=== PATIENT | female | born 1930 | race Caucasian/White ===

== ENCOUNTER → 2016-11-12 | Outpatient (CLI) | payer OTHER | LOC: FIMAGING 09:22 | PROVIDERS: ATTEND Obstetrics & Gynecology Gynecology | DX: Z12.39 Encounter for other screening for malignant neoplasm of breast (principal); N63 Unspecified lump in breast | CPT/HCPCS: 76641; G0204 ==

== ENCOUNTER 2017-11-26 12:30 | Observation (INO) | payer OTHER ==
--- NOTE | 2017-12-31 10:54 | PDHPUP ---
History & Physical Update H&P update statement: This history and physical update is based on an assessment of the patient which was completed after admission or registration (within 24 hours), but prior to the surgery/procedure. H&P update: H&P reviewed & patient examined, no change in patient's condition since H&P completed
[2017-12-31] MEDS ORDERED: LR 1,000 ML IV ONE (11:00)
[2017-12-31] MEDS ORDERED: fentaNYL 250 MCG/5 ML INJ ONE (11:08)
[2017-12-31] MEDS ORDERED: PROPOFOL/EMULSION 500 MG/50 ML BOTTLE IV ONE (11:09)
[2017-12-31] MEDS ORDERED: PHENAZOPYRIDINE HCL 200 MG TAB PO ONE (11:20)
[2017-12-31] MEDS ORDERED: ceFAZolin 2 GM/DEXTROSE 100 ML IV ONE (11:20)
[2017-12-31] MEDS ORDERED: ACETAMINOPHEN 500 MG TAB PO ONE (11:20)
[2017-12-31] MEDS ORDERED: CEFAZOLIN 2 GM/DEXTROSE/100 ML BAG IV ONE (11:22)
[2017-12-31] MEDS ORDERED: PHENAZOPYRIDINE HCL 200 MG TAB ONE (11:25)
[2017-12-31] MEDS ORDERED: ACETAMINOPHEN 325 MG TAB ONE (11:25)
--- NOTE | 2017-12-31 11:30 | PDANEPAE ---
ANE History of Present Illness 87 year old female for sacrocolpopexy. Pacemaker, Afib. ANE Past Medical History - Cardiovascular History Hx Hypertension: No Hx Arrhythmias: Yes Hx Chest Pain: No Hx Coronary Artery / Peripheral Vascular Disease: No Hx CHF / Valvular Disease: No Hx Palpitations: No Cardiovascular History Comment: ECHO PENDING 12/16 - Pulmonary History Hx COPD: No Hx Asthma/Reactive Airway Disease: No Hx Recent Upper Respiratory Infection: No Hx Oxygen in Use at Home: No Hx Sleep Apnea: No Sleep Apnea Screening Result - Last Documented: Negative - Neurologic History Hx Cerebrovascular Accident: No Hx Seizures: No Hx Dementia: No - Endocrine History Hx Diabetes: No - Renal History Hx Renal Disorders: No - Liver History Hx Hepatic Disorders: No - Neurological & Psychiatric Hx Hx Neurological and Psychiatric Disorders: No - Cancer History Hx Cancer: Yes Cancer History Comment: BASAL CELL - Congenital Disorder History Hx Congenital Disorders: No - GI History Hx Gastrointestinal Disorders: No - Other Health History Other Health History: none - Chronic Pain History Chronic Pain: No - Surgical History Prior Surgeries: none ANE Review of Systems Review of systems is: negative Review of Systems: - Exercise capacity METS (RN): 4 METS - Pacemaker Pacemaker Type: Permanent Pacer/Defib Pacemaker Jig Grinder Set Up Operator: Medtronic Pacemaker Model: adapta ADDOR1 Pacemaker Mode: VVIR Date Pacemaker Last Checked: 06/13/17 ANE Patient History - Allergies Allergies/Adverse Reactions: Sulfa (Sulfonamide Antibiotics) Allergy (Verified 12/31/17 11:15) Vomiting - Home Medications Home Medications: Dabigatran Etexilate Mesyl [Pradaxa 150 MG (*)] 150 mg PO BID 11/24/17 [Last Taken 12/29/17] Estradiol [Estrace Vaginal (*)] 1 sander VG Q3D 11/24/17 [Last Taken Unknown] Estradiol [Vivelle-Dot 0.0375MG (*)] 0.0375 mg TD MoTh@0800 11/24/17 [Last Taken 12/30/17] Herbals/Supplements -Info Only 1 ea PO DAILY 11/24/17 [Last Taken 12/24/17] Multivitamins [Multivitamin (*)] 1 each PO DAILY 11/24/17 [Last Taken 12/24/17] - NPO status NPO Since - Liquids (Date): 12/31/17 NPO Since - Liquids (Time): 07:00 NPO Since - Solids (Date): 12/30/17 NPO Since - Solids (Time): 02:00 - Smoking Hx Smoking Status: Never smoked - Family Anes Hx Family Hx Anesthesia Complications: none ANE Labs/Vital Signs - Vital Signs Blood Pressure: 183/104 Heart Rate: 79 Respiratory Rate: 16 O2 Sat (%): 92 Height: 160.02 cm Weight: 61.235 kg ANE Physical Exam - Airway Neck exam: FROM Mallampati Score: Class 2 Mouth exam: normal dental/mouth exam - Pulmonary Pulmonary: no respiratory distress - Cardiovascular Cardiovascular: regular rate and rhythym - ASA Status ASA Status: III ANE Anesthesia Plan Anesthesia Plan: general endotracheal anesthesia
[2017-12-31] MEDS ORDERED: BUPIVACAINE/EPI 0.5% 30 ML SDV ONE (11:42)
[2017-12-31] MEDS ORDERED: ROCURONIUM 50 MG/5 ML VIAL ONE (12:00)
[2017-12-31] MEDS ORDERED: LIDOCAINE 2% 5 ML SDV ONE (12:00)
[2017-12-31] MEDS ORDERED: ONDANSETRON 4 MG/2 ML VIAL ONE (12:00)
[2017-12-31] MEDS ORDERED: DEXAMETHASONE 4 MG/ML VIAL ONE (12:00)
[2017-12-31] MEDS ORDERED: ALBUTEROL 3 ML DEYVIAL IH PRN (12:16)
[2017-12-31] MEDS ORDERED: NALOXONE HCL 0.4 MG/ML INJ IVP PRN (12:16)
[2017-12-31] MEDS ORDERED: HYDROCODONE/APAP 5/325 TAB PO PRN ×2 (12:16→13:58)
[2017-12-31] MEDS ORDERED: ONDANSETRON 4 MG/2 ML VIAL IVP PRN ×2 (12:16→13:58)
[2017-12-31] MEDS ORDERED: PROPOFOL 200 MG/20 ML VIAL ONE (12:51)
[2017-12-31] MEDS ORDERED: SUGAMMADEX SODIUM 200 MG/2 ML VIAL IVP ONE (13:46)
[2017-12-31] MEDS ORDERED: PROMETHAZINE HCL 25 MG/ML INJ IVP PRN (13:58)
[2017-12-31] MEDS ORDERED: ONDANSETRON DISINTEGRATING 4 MG TAB PO PRN (13:58)
--- NOTE | 2017-12-31 13:58 | POSTOPPROG ---
Post Op Note Date of Operation: 12/31/17 Surgeon: David Vela Siding Installer: Ariella Gonzalez Anesthesia: GET(General Endotracheal) Pre-op Diagnosis: Complete vaginal prolapse Post-op Diagnosis: Same Procedure: Robotic sacrocolpopexy with mesh, Perineorrhaphy, cysto Findings: No bladder or ureteral injury Inf/Abcess present in the surg proc area at time of surgery?: No EBL: Minimal Complications: None
[2017-12-31] MEDS ORDERED: LR 1,000 ML IV SCH (14:00)
[2017-12-31] MEDS: fentaNYL 100 MCG/2 ML INJ IVP PRN ×3 (14:02→14:19)
[2017-12-31] MEDS ORDERED: fentaNYL 100 MCG/2 ML INJ ONE (14:05)
[2017-12-31] MEDS ORDERED: PHENYLEPHRINE HCL 100 MCG/ML SYR ONE (14:11)
--- NOTE | 2017-12-31 14:14 | POSTANESTH ---
Post Anesthetic Evaluation Cardiovascular Status: Normal, Stable Respiratory Status: Normal, Stable Level of Consciousness/Mental Status: Mildly Sleepy, Arousable, Moderately Sleepy Pain Control: Adequate, Prn Tx Ordered Nausea/Vomiting Control: Adequate, Prn Tx Ordered Complications Possibly Related to Anesthesia: None Noted
[2017-12-31] MEDS ORDERED: HYDROmorphONE/DILAUDID 1 MG/ML INJ ONE (14:21)
[2017-12-31] MEDS: HYDROmorphONE/DILAUDID 1 MG/ML INJ IVP PRN ×3 (14:30→15:58)
--- NOTE | 2017-12-31 16:04 | GOP ---
[f rep st] OPERATIVE REPORT DATE OF OPERATION: 12/31/2017 SURGEON: David Vela MD SALES HOST: Ariella Gonzalez CFA. ANESTHESIA: General. PREOPERATIVE DIAGNOSIS: Complete vaginal prolapse. POSTOPERATIVE DIAGNOSIS: Complete vaginal prolapse. PROCEDURE PERFORMED: 1. Robotic-assisted laparoscopic sacrocolpopexy with mesh. 2. Repair of cystocele and rectocele. 3. Perineorrhaphy. 4. Cystoscopy. FINDINGS: SPECIMENS: None. ESTIMATED BLOOD LOSS: Scant. DESCRIPTION OF PROCEDURE: The patient was taken to the operating room where she was identified. General anesthesia was administered and found to be adequate. She was placed in the lithotomy position and prepared and draped in normal sterile fashion. A Rizo catheter was placed in her bladder. The patient had a prior midline laparotomy incision. A left-sided incision was made at the level of the umbilicus, slightly above. The Veress needle with the CO2 gas flowing was advanced into the peritoneal cavity. The abdomen was then insufflated with carbon dioxide gas. The robotic 8 mm trocar was placed, followed by the laparoscope. The patient had adhesions in the right lower quadrant, but not through the umbilicus. The umbilical port was then placed followed by 2 right-sided ports and 1 additional left-sided port. The patient was then placed in Trendelenburg position and the Da Chaya robot docked on the left side. The instruments were then brought into the abdominal cavity under direct visualization. The adhesions were then taken down and the stent was placed in the vagina. The bladder gently dissected off the anterior vaginal wall. The rectovaginal space was then entered and the rectum dissected off the posterior vaginal wall. Measurements were then obtained and the mesh trimmed to size. The sigmoid colon was then retracted laterally. The peritoneum over the sacral promontory was incised and the fat pad gently dissected off the anterior longitudinal ligament. The peritoneal incision was then extended along the right pericolic gutter. The mesh was brought into the abdominal cavity. Three sutures of 4-0 Golf-Nathaniel were used to attach the distal posterior mesh to the distal posterior vagina. Two additional rows of Golf-Nathaniel sutures were placed posteriorly. Three rows were placed anteriorly to suture down to the distal margins and then laterally to the paravaginal tissue. The stent was then removed. The sacral arm of the mesh was placed over the promontory and the tension adjusted. I then scrubbed back into the case to examine the vagina. The tension was further adjusted to resolve the cystocele and rectocele without undue tension on the vagina. Two sutures of 2-0 Golf-Nathaniel were used to attach the sacral arm of the mesh to the anterior longitudinal ligament at the level of the upper sacral vertebral body, below the intervertebral disk space. The excess mesh was then trimmed. The peritoneum was then closed over the entire mesh with 3-0 Vicryl Rapide suture. The robot was then undocked. The fascia was closed with 0 Vicryl, skin with 4-0 Monocryl and surgical adhesive. Cystoscopy was then performed. Both ureters had vigorous jets of urine. There was no evidence of bladder nor urethral injury seen. No mesh nor suture was seen within the bladder nor urethra. No obvious pathology was seen. The transverse incision was then made along the perineal body. The posterior vaginal epithelium was undermined with the Metzenbaum scissors and incised sagittally. The epithelium was then gently dissected off the underlying rectovaginal connective tissue. The connective tissue was plicated with 0 Vicryl followed by the bulbous spongiosis and transverse perineal muscles. The excess epithelium was then trimmed and closed with a running 2-0 Vicryl suture. Premarin cream was placed followed by vaginal packing. Anesthesia was reversed and the patient taken to PACU awake, in stable condition. COMPLICATIONS: None. DISPOSITION: Patient stable to PACU. /[id number]/MODL MTDD
[2017-12-31] MEDS: SIMETHICONE 80 MG TAB CHEW PO SCH ×2 (18:21→21:07)
[2017-12-31] MEDS: DABIGATRAN ETEXILATE MESYL 150 MG CAP PO SCH (21:07)
[2017-12-31] MEDS: DOCUSATE SODIUM 100 MG CAP PO SCH (21:07)
[2018-01-01 07:44] VITALS: BP 152/78
[2018-01-01] MEDS ORDERED: ACETAMINOPHEN 325 MG TAB PO PRN (08:17)
[2018-01-01] MEDS: DOCUSATE SODIUM 100 MG CAP PO SCH (08:30)
[2018-01-01] MEDS: SIMETHICONE 80 MG TAB CHEW PO SCH (08:30)
[2018-01-01] MEDS: DABIGATRAN ETEXILATE MESYL 150 MG CAP PO SCH (08:30)
--- NOTE | 2018-01-01 09:27 | GDS ---
[f rep st] DISCHARGE SUMMARY DISCHARGE DIAGNOSIS: Complete vaginal prolapse. PROCEDURES: 1. Robotic-assisted laparoscopic sacral colpopexy with mesh. 2. Repair of cystocele and rectocele. 3. Cystoscopy. HOSPITAL COURSE: The patient is an 87-year-old woman with a long history of vaginal prolapse. She was taken to the operating room on 12/31/2017, where she underwent the above-mentioned procedures without complications. Her postoperative course was uneventful. The morning after surgery she was ambulating, voiding, and tolerating a general diet. She was discharged home on postoperative day #1 in good condition. Medications included ibuprofen and Tylenol for pain. She will follow up in the office 2 weeks after discharge. /[id number]/MODL MTDD
== END 2018-01-01 09:58 | disposition home or self-care (01) ==
LOC: F3N 12-31 10:25 → F3E 12-31 15:09
PROVIDERS: ADMIT Obstetrics & Gynecology; ATTEND Obstetrics & Gynecology
DX: N81.3 Complete uterovaginal prolapse (principal); I48.91 Unspecified atrial fibrillation; Z95.0 Presence of cardiac pacemaker; Z85.828 Personal history of other malignant neoplasm of skin
CPT/HCPCS: 57260; 57425; C1763; G0378; J0690; J1100; J1170; J2370; J2405; J2704; J3010

== ENCOUNTER 2018-07-26 20:58 | Emergency (ER) | payer OTHER ==
[2018-07-26 21:09] VITALS: BP 192/104
[2018-07-26] MEDS ORDERED: TRANEXAMIC ACID 1,000 MG/10 ML VIAL TP ONE (22:07)
[2018-07-26] MEDS ORDERED: SILVER NITRATE APPLICATOR 1 APPL TP ONE (22:07)
--- NOTE | 2018-07-26 22:10 | EDPHY ---
H & P Stated Complaint: epistaxis on bloodthinners off and on for 2 days Time Seen by Provider: 07/26/18 21:58 HPI/ROS: HPI The patient presents with intermittent epistaxis since yesterday morning. This started spontaneously and has been from her right nostril. She was able to control it yesterday morning and again this morning. However, tonight she was in the shower and had bleeding that did not stop so she comes to the emergency department. She has no prior history of similar. She has been taking Pradaxa for years for atrial flutter. She has not had any loss of consciousness, dizziness. REVIEW OF SYSTEMS 10 systems were reviewed and negative with the exception of the elements mentioned in the history of present illness. PMHx: Atrial flutter on Pradaxa Soc Hx: Housed, here with her PHYSICAL General Appearance: Alert, no distress Eyes: Pupils equal and round no pallor or injection ENT, Mouth: Active bleeding from right naris, Mucous membranes moist Respiratory: There are no retractions, lungs are clear to auscultation Cardiovascular: Regular rate and rhythm Gastrointestinal: Abdomen is soft and non-tender, no masses, bowel sounds normal Neurological: A&O, moves all extremities Skin: Warm and dry, no rashes Musculoskeletal: Neck is supple non tender Extremities: symmetrical, full range of motion Psychiatric: Patient is oriented X 3, there is no agitation Source: Patient Exam Limitations: No limitations - Personal History Current Tetanus/Diphtheria Vaccine: Yes Current Tetanus Diphtheria and Acellular Pertussis (TDAP): Yes - Medical/Surgical History Hx Asthma: No Hx Chronic Respiratory Disease: No Hx Diabetes: No Hx Cardiac Disease: Yes Hx Renal Disease: No Hx Cirrhosis: No Hx Alcoholism: No Hx HIV/AIDS: No Hx Splenectomy or Spleen Trauma: No Other PMH: appy, hysterectomy, tonsillectomy, bone tumor, afib pacemakers - Social History Smoking Status: Never smoked Constitutional: Initial Vital Signs Temperature (C) 36.9 C 07/26/18 21:04 Heart Rate 94 07/26/18 21:04 Respiratory Rate 16 07/26/18 21:04 Blood Pressure 192/104 H 07/26/18 21:04 O2 Sat (%) 92 07/26/18 21:04 O2 Delivery Mode Room Air Allergies/Adverse Reactions: Sulfa (Sulfonamide Antibiotics) Allergy (Verified 07/26/18 21:09) Vomiting Home Medications: Medication Instructions Recorded Dabigatran Etexilate Mesyl 150 mg PO BID 11/24/17 [Pradaxa 150 MG (*)] Estradiol [Vivelle-Dot 0.0375MG 0.0375 mg TD MoTh@0800 11/24/17 (*)] Herbals/Supplements -Info Only 1 ea PO DAILY 11/24/17 Multivitamins [Multivitamin (*)] 1 each PO DAILY 11/24/17 Medical Decision Making Procedures: NOSE BLEED Procedure: Epistaxis control. Indication: nosebleed not controlled by direct pressure. Risks, benefits, alternatives discussed with patient and consent obtained. The right nares was anesthetized with lidocaine with epinephrine. The anterior epistaxis was identified. The patient was treated with T ex a soaked gauze followed by cautery with silver nitrate stick. Following the procedure the patient was re-examined and the bleeding was well controlled. The patient tolerated the procedure well. The procedure was performed by myself. Differential Diagnosis: 88-year-old female with atrial flutter on Pradaxa presents with spontaneous epistaxis from right naris for the last 2 days intermittently, now more profuse. Here, she is hypertensive, otherwise vital signs are normal. I cannot localize bleeding on initial exam. Patient was given T ex a soaked gauze with improvement in bleeding. Then, silver nitrate cauterized area of bleed. - Data Points Medications Given: Discontinued Medications Silver Nitrate/Potassium Nitrate (Silver Nitrate Applicator) 1 each TP EDNOW ONE Stop: 07/26/18 22:08 Last Admin: 07/26/18 22:50 Dose: 1 each Tranexamic Acid (Cyklokapron) 500 mg TP EDNOW ONE Stop: 07/26/18 22:08 Last Admin: 07/26/18 22:50 Dose: 500 mg Departure - Departure Disposition: Home, Routine, Self-Care Clinical Impression: Acute anterior epistaxis Condition: Good Instructions: Nosebleed (ED) Additional Instructions: I recommend you use Vaseline inside her nose during the day. You may benefit from a humidifier at night. If the bleeding starts again please use Afrin and the nasal clamps for 10 min. I would hold your Pradaxa for 2 days. Referrals: Durga,Janine, PAC [Physician Head Usher] - As per Instructions
[2018-07-26] MEDS ORDERED: OXYMETAZOLINE 30 ML NASAL SPRAY EACHNARE ONE (23:05)
== END 2018-07-26 23:19 | disposition home or self-care (01) ==
PROC: 3E09XTZ Introduction of Destructive Agent into Nose, External Approach (ICD-10-PCS; principal; 2018-07-26)
DX: R04.0 Epistaxis (principal); I48.92 Unspecified atrial flutter; Z79.01 Long term (current) use of anticoagulants